=== PATIENT | male | born 1940 | race Caucasian/White ===

== ENCOUNTER 2020-05-16 10:02 | Observation (INO) ==
--- NOTE | 2020-04-05 10:12 | PAT Medication Instructions ---
Medication Instructions Date of Service April 05, 2020 Home Medications alendronate 70 mg PO WK allopurinol 300 mg PO HS atorvastatin 10 mg PO QAM cholecalciferol (vitamin D3) [Vitamin D3] 2,000 unit PO QAM cod liver oil 1 cap PO QAM furosemide 20 mg PO QAM gemfibrozil 600 mg PO QAM metformin 850 mg PO BID multivitamin 1 cap PO QAM pantoprazole 40 mg PO QAM pyridoxine (vitamin B6) [Vitamin B-6] 100 mg PO QAM terazosin 5 mg PO QAM vitamin E 400 unit PO QAM meloxicam 7.5 mg PO BID PRN Continue as directed alendronate 70 mg PO WK (just do not take on morning of surgery) ASK your surgeon for instructions meloxicam 7.5 mg PO BID PRN STOP taking 2 weeks before surgery cod liver oil 1 cap PO QAM vitamin E 400 unit PO QAM STOP taking 48 hours before surgery gemfibrozil 600 mg PO QAM DO NOT take the morning of surgery cholecalciferol (vitamin D3) [Vitamin D3] 2,000 unit PO QAM furosemide 20 mg PO QAM metformin 850 mg PO BID multivitamin 1 cap PO QAM pyridoxine (vitamin B6) [Vitamin B-6] 100 mg PO QAM Take morning of surgery With a small sip of water, OTHERWISE NOTHING TO EAT OR DRINK AFTER MIDNIGHT: atorvastatin 10 mg PO QAM pantoprazole 40 mg PO QAM terazosin 5 mg PO QAM Take evening before surgery allopurinol 300 mg PO HS metformin 850 mg PO BID Other Notes If you have any questions please call us at [phone] or [phone] or [phone] or [phone]
--- NOTE | 2020-04-06 14:25 | Anesthesiology Consultation ---
Date of Service April 06, 2020 Assessment & Plan (1) Encounter for pre-operative examination: Chart Review Chart Review: Acceptable Risk for Surgery (pending preop Covid testing ) - Check BSG AM DOS Per PAT appt 04/06/20, pt resides in [facility]. No recent travel. Wears mask in public. No known Covid positive contacts or Covid related symptoms. Educated patient to follow up with surgeon's office regarding Covid testing. Educated on importance of self quarantining, social distancing and wearing mask in public both for the patient and household contacts. Teaching & Discussion Pre-Anesthesia Teaching/Discussion Notes: Instructed NPO after midnight before surgery,except medications with 15 cc of water. Medication instructions provided according to the PAT guidelines. History Surgery Operation Date: 05/16/20 09:10 Proposed Procedures p Right Total Knee Arthroplasty - Manuel Miner MD Height/Weight Height: 5 ft 10 in Weight: 85.4 kg Allergies Allergy/AdvReac Type Severity Reaction Status Date / Time moxifloxacin Allergy Severe HIVES Verified 04/06/20 12:56 dutasteride AdvReac Severe BREAST Verified 04/06/20 12:56 ENLARGMENT tamsulosin AdvReac Severe BREAST Verified 04/06/20 12:56 ENLARGMENT yellow dye AdvReac Severe BREAST Verified 04/06/20 12:56 ENLARGMENT Medications Home Medications Medication Instructions Recorded Confirmed Last Taken alendronate 70 mg PO WK 08/09/19 04/06/20 Unknown allopurinol 300 mg PO HS 08/09/19 04/06/20 Unknown atorvastatin 10 mg PO QAM 08/09/19 04/06/20 Unknown cholecalciferol (vitamin D3) 2,000 unit PO QAM 08/09/19 04/06/20 Unknown [Vitamin D3] cod liver oil 1 cap PO QAM 08/09/19 04/06/20 Unknown furosemide 20 mg PO QAM 08/09/19 04/06/20 Unknown gemfibrozil 600 mg PO QAM 08/09/19 04/06/20 Unknown metformin 850 mg PO BID 08/09/19 04/06/20 Unknown multivitamin 1 cap PO QAM 08/09/19 04/06/20 Unknown pantoprazole 40 mg PO QAM 08/09/19 04/06/20 Unknown pyridoxine (vitamin B6) [Vitamin 100 mg PO QAM 08/09/19 04/06/20 Unknown B-6] terazosin 5 mg PO QAM 08/09/19 04/06/20 Unknown vitamin E 400 unit PO QAM 08/09/19 04/06/20 Unknown meloxicam 7.5 mg PO BID PRN 04/04/20 04/06/20 Unknown Past Medical History Medical History BPH (benign prostatic hyperplasia) Chronic obstructive pulmonary disease stable Diabetes mellitus, type 2 NIDDM- well controlled and stable Gout No recent flares Hyperlipidemia Nocturnal hypoxia 2L HS Osteoporosis Exercise / Class Metabolic Activity III < 4 Walking/Shop/Light housework (no chest pain or SOB with flat surface ambulation - uses cane ) Past Surgical History Surgical History History of cataract surgery bl History of hip replacement LEFT, RIGHT Hx of colonoscopy 10 yeras ago Hx of fusion of cervical spine X1 LEVEL Hx of hemorrhoidectomy Hx of hernia repair LEFT, RIGHT Past Anesthesia History No Hx of Anesthesia Complications and No Family Hx of Anesthesia Complications History of PONV No Hx of PONV and No Hx of Motion Sickness Social History Smoking Status: Former smoker tobacco type: cigarettes Smoking End Date: quit 2013 Hx Alcohol Use: No Hx Substance Use: No substance use type: does not use Review of Systems KENDALL- chronic and stable- feels secondary to COPD Had own blood for transfusion for PARUL. Patient denies chest pain, shortness of breath, reflux, cough, wheezing, palpitations. No hx of seizures, stroke, RI, apnea/snoring. No hx of blood clots. Physical Exam Vital Signs VITALS BP 110/67 P 73 TEMP 97.9 SP02 95% RESP 16 Constitutional no acute distress ENMT Mouth: no TMJ clicking Thyromental Distance: > or= 3.5 Finger Breadths Mallampati Class: III Full upper dentures Partial lower dentures Neck neck extension not limited Respiratory normal respiratory effort; no respiratory distress Auscultation: lungs clear to auscultation bilaterally and + diminished lung sounds (throughout ); no wheezes Cardiovascular Rate/Rhythm: regular rate and regular rhythm Heart Sounds: no murmur Vessels: no carotid bruit Musculoskeletal Spine: no pain with cervical ROM Neurologic moves all extremities Psychiatric Orientation: alert Testing Laboratory Results 04/06/20 14:48 04/06/20 14:48 PT 10.3 Seconds (9.0-12.0) 04/06/20 14:48 INR 1.0 (0.9-1.1) 04/06/20 14:48 APTT 26.3 Seconds (21.0-31.0) 04/06/20 14:48 Blood Type O Positive 04/06/20 14:48 Antibody Screen NEGATIVE 04/06/20 14:48 Electrocardiogram Date: 08/16/19 Findings: + NSR @ (75) Chest X-Ray Date: 08/16/19 Findings: + NAD Emphysema
[2020-04-06 15:33] LABS: Basophils # (auto) 0.03 K/uL (0-0.2); Basophils % (auto) 0.6 %; Eosinophils # (auto) 0.16 K/uL (0-0.5); Eosinophils % (auto) 3.1 %; Immature Granulocytes # (auto) 0.03 K/uL (0.00-0.02); Immature Granulocytes % (auto) 0.6 %; Lymphocytes # (auto) 1.51 K/uL (1.2-3.4); Lymphocytes % (auto) 29.5 %; Mean Corpuscular Hemoglobin 30.1 pg (25-34); Mean Corpuscular Hgb Conc 32.4 g/dL (32-36); Mean Corpuscular Volume 92.7 fL (80-100); Mean Platelet Volume 9.1 fL (7.4-10.4); Monocytes # (auto) 0.43 K/uL (0.11-0.59); Monocytes % (auto) 8.4 %; Neutrophils # (auto) 2.96 K/uL (1.4-6.5); Neutrophils % (auto) 57.8 %; Platelet Count 334 K/uL (130-400); RDW Coefficient of Variation 14.2 % (11.5-14.5); RDW Standard Deviation 48.3 fL (36.4-46.3); Red Blood Count 3.99 M/uL (4.7-6.1); White Blood Count 5.12 K/uL (4.8-10.8)
[2020-04-06 15:50] LABS: Partial Thromboplastin Ratio 0.9; Partial Thromboplastin Time 26.3 Seconds (21.0-31.0); Prothrombin Time 10.3 Seconds (9.0-12.0)
[2020-04-06 16:03] LABS: BUN Creatinine Ratio 26.1 (10-20); Blood Urea Nitrogen 30 mg/dl (7-18); C Reactive Protein < 0.29 mg/dl (0-0.29); Calcium 9.9 mg/dl (8.5-10.1); Carbon Dioxide 28 mmol/L (21-32); Chloride 100 mmol/L (98-107); Creatinine Clr Calc Pharmacy 54.7 ml/min; Est GFR (African American) 70.3; Est GFR (Non-African American) 60.6; Glucose 93 mg/dl (70-99); Potassium 4.1 mmol/L (3.5-5.1); Sodium 138 mmol/L (136-145)
[2020-04-07 06:49] LABS: Estimated Average Glucose 137 mg/dl; Hemoglobin A1C 6.4 % (4.5-5.6)
--- NOTE | 2020-05-09 20:25 | History and Physical Report ---
DATE OF ADMISSION: 05/16/2020 CHIEF COMPLAINT: Persistent right knee pain, discomfort and instability. HISTORY OF PRESENT ILLNESS: The patient is a 79-year-old gentleman from [place] who presents for surgical treatment of his right knee. We had actually scheduled him for right knee replacement in the past, but it got canceled due to the COVID epidemic. He continues to be bothered by right knee pain and discomfort. He has got global pain, a little bit more lateral. The more he walks, the more it hurts. He has had injections, which gave him very temporary relief. His knee gives out on him intermittently. He is concerned about falling. He has difficulty going up and down steps. He has been using a cane for the past year. Of note, the patient had both of his hips replaced by Dr. Lew, one 5 years ago and the other one 10 years ago. PAST MEDICAL HISTORY: 1. Elevated cholesterol. 2. COPD. 3. Diabetes. 4. Low back pain/sciatica. 5. Mild obesity. 6. BPH. PAST SURGICAL HISTORY: Includes, 1. Bilateral hip replacements done 5 years apart, one 5 years ago, one years ago. 2. Herniorrhaphy. 3. Hemorrhoid surgery. 4. Cervical disk surgery. 5. Mastectomy. 6. Unspecified microsurgery on his back. ALLERGIES: GALDINO. CURRENT MEDICINES: Include, 1. Alendronate once a week. 2. Allopurinol 300 mg a day. 3. Lipitor 10 mg a day. 4. Furosemide 20 mg every other day. 5. Gemfibrozil 600 mg a day. 6. Metformin 850 mg twice a day. 7. Pantoprazole 40 mg a day. 8. Terazosin 5 mg a day. 9. Vitamin B6. 10. Cod liver oil. 11. Vitamin D3. 12. Vitamin E. 13. Multivitamin. SOCIAL HISTORY: A 79-year-old male patient from [place]. He is . Does not smoke. FAMILY HISTORY: Noncontributory. REVIEW OF SYSTEMS: Just significant for diabetes. Denies any current chest pain or shortness of breath. No history of DVT or PE. No known bleeding problems. PHYSICAL EXAMINATION GENERAL: Shows a pleasant elderly male. Looks to be in pretty good health. HEENT: Benign. NECK: Supple, no lymphadenopathy. LUNGS: Clear to auscultation. HEART: Has a regular rate and rhythm. ABDOMEN: Soft, nontender, nondistended. EXTREMITIES: Grossly neurovascularly intact except as follows: Examination of the right knee reveals the patient walks with the use of a cane. He has got valgus alignment to his knee, which is increased with weightbearing. Small knee effusion. Range of motion about 10 degrees short of full extension to 120 degrees of flexion. There is no instability. No pain with hip motion. He is neurovascularly intact. X-RAYS: X-rays of the right knee are reviewed. It shows advanced right knee lateral compartment DJD. He has got complete loss of his lateral joint space. He has got significant patellofemoral disease as well. 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 He has failed conservative treatment and would like to have his right knee replaced. We did have him scheduled in the past but canceled due to the COVID epidemic. He now would like to proceed. PLAN: We will proceed with right knee replacement. The risks and benefits of this procedure were explained to the patient and include but not limited to DVT, PE, , infection, neurological injury, vascular injury, bleeding problem, pain, limited range of motion, stiffness, failure to relieve symptoms, incomplete relief of symptoms, need for further surgery in the future, fracture, leg length inequality, nerve palsy, etc. The patient understands and desires to proceed. We did talk to him about holding his metformin in the morning of surgery. He is planning to be discharged to home using [facility] home health program.
[~2020-05-16 10:02] MED LIST: ACETAMINOPHEN 500 MG TAB PO SCH; BUPIVACAINE 0.5 % 5 MG/1 ML PF 10ML VIAL ONE; BUPIVACAINE LIPOSOME/PF 266 MG, BUPIVACAINE/EPINEPHRINE 50 ML, SODIUM CHLORIDE 0.9% 30 ... INFIL SCH; BUPIVACAINE/EPINEPHRINE 0.25% 1:200,000 30 ML VIAL ONE; DEXAMETHASONE SOD INJ 4 MG/ML VIAL ONE; FAMOTIDINE 20 MG TAB PO SCH; GABAPENTIN 300 MG CAP PO SCH; LR 500ML BOLUS, THEN 15ML/HR IV SCH; LR 60ML/HR IV SCH; METOCLOPRAMIDE HCL 10 MG TABLET PO SCH; MIDAZOLAM HCL 1 MG/ML 2ML VIAL ONE; TRANEXAMIC ACID 1,000 MG **IV Intra-op IV SCH; ceFAZolin 2000MG 2,000 MG/15 ML SYR IV SCH; fentaNYL citrate 100 MCG/2 ML VIAL ONE
--- NOTE | 2020-05-16 10:46 | History & Physical Bridge Note ---
Date of Service May 16, 2020 History & Physical Bridge Note I have examined the patient, reviewed the History & Physical and in the interval since the performance of the History & Physical I have noted the following changes of clinical significance: no changes noted
[2020-05-16] MEDS ORDERED: fentaNYL citrate 100 MCG/2 ML VIAL IV PRN (12:29)
[2020-05-16] MEDS ORDERED: ONDANSETRON INJ 2 MG/ML 2 ML VIAL IV PRN ×2 (12:29→17:30)
[2020-05-16] MEDS ORDERED: ePHEDrine sulfate 50 MG/ML AMP IV PRN (12:29)
[2020-05-16] MEDS ORDERED: ATROPINE SULFATE 0.1 MG/ML 10ML SYR IV PRN (12:29)
[2020-05-16] MEDS ORDERED: BUPIVACAINE 0.25% 30 ML VIAL ONE (12:50)
[2020-05-16] MEDS ORDERED: EPINEPHrine INJ 1 MG/ML AMP ONE (12:50)
[2020-05-16] MEDS ORDERED: SODIUM CHLORIDE 0.9% PF 50 ML VIAL ONE (12:50)
[2020-05-16] MEDS ORDERED: BUPIVACAINE LIPOSOME 1.3% 266 MG/20 ML VIAL ONE (12:51)
[2020-05-16] MEDS ORDERED: BACITRACIN INJ 50,000 UNIT VIAL ONE (12:51)
[2020-05-16] MEDS ORDERED: PROPOFOL IV EMULSION 10 MG/ML 20 ML VIAL IV ONE (13:12)
--- NOTE | 2020-05-16 14:52 | Post Operative Brief Note ---
PG Immediate Post Op with CF Date of Surgery May 16, 2020 Pre & Post Diagnosis Operation Date: 05/16/20 12:30 Pre-Op Diagnosis: Right Knee Degenerative Joint Disease; Knee Pain Post-Op Diagnosis: Right Knee Degenerative Joint Disease; Knee Pain I identified the patient and participated in the time-out.: Yes Procedure Operation Date: 05/16/20 12:30 Actual Procedures p Right Total Knee Arthroplasty(Right) - Manuel Miner MD Surgeon Manuel Miner MD Wood Drill Operator JACLYN Bryant Estimated Blood Loss 50 Findings Consistent with Post-Op Diagnosis Fluids 700 cc Specimens Specimen Description: Permanent specimen: A. Right knee bone and tissue Drains Garnett Catheter (16 fr garnett catheter inserted by JACLYN Membreno, clear yellow urine for return) Anesthesia Type Spinal MAC Complications none Disposition Accompanied Patient To Recovery: No Disposition: Recovery Room
--- NOTE | 2020-05-16 15:48 | XRay Report ---
RIGHT KNEE 2 VIEWS History: Right total knee arthroplasty. Degenerative arthritis. Postop. FINDINGS: The patient is status post a right total knee arthroplasty. The hardware is intact. No frac ture or dislocation. Skin veto are in place. IMPRESSION: Right total knee arthroplasty. No evidence for hardware complication. ACT 112: Negative or not required by law. Electronically signed by: Bolivar Galeano M.D. 05/16/2020 3:47 PM
--- NOTE | 2020-05-16 16:26 | Anesthesiology Progress Note ---
Date of Service May 16, 2020 Anesthesia Post Procedure Vital Signs Vital Signs: Temp Pulse Pulse Resp BP Pulse Ox 05/16/20 16:00 36.4 C L 74 16 100/57 L 94 05/16/20 15:45 67 16 101/57 L 94 05/16/20 15:35 64 16 106/60 94 05/16/20 15:25 61 16 96/57 L 94 05/16/20 15:15 68 16 104/52 L 94 05/16/20 15:05 69 16 96/56 L 97 05/16/20 14:57 36.0 C L 71 16 104/54 L 97 05/16/20 11:28 63 18 103/65 97 05/16/20 10:59 36.5 C 95 H 20 123/71 98 Transfer of Care Handoff Completed per policy Notes Mental Status: alert / awake / arousable Patient Amnestic to Procedure: Yes Nausea / Vomiting: adequately controlled Pain: adequately controlled Airway Patency, RR, SpO2: stable & adequate BP & HR: stable & adequate Hydration State: stable & adequate Neuraxial Anesthesia: was administered and sensory block is resolving Anesthetic Complications: no major complications apparent
--- NOTE | 2020-05-16 16:56 | Operative Report ---
Post Operative Report Pre & Post Diagnosis Operation Date: 05/16/20 12:30 Pre-Op Diagnosis: Right Knee Degenerative Joint Disease; Knee Pain Post-Op Diagnosis: Right Knee Degenerative Joint Disease; Knee Pain I identified the patient and participated in the time-out.: Yes Procedure Operation Date: 05/16/20 12:30 Actual Procedures p Right Total Knee Arthroplasty(Right) - Manuel Miner MD Surgeon Manuel Miner MD Low Heel Builder Annette, PAC Estimated Blood Loss 50 Findings Consistent with Post-Op Diagnosis Operative findings revealed advanced right knee DJD with extensive grade 4 [id number] disease and eburnation of the lateral compartment as well as the patellofemoral compartment. He had a valgus deformity to his knee. He had generalized ligament laxity moderate-sized joint effusion. Fluids 700 cc. Specimens Right knee sent for pathology. Drains None. Anesthesia Type Spinal MAC Complications none Disposition Accompanied Patient To Recovery: No Disposition: Recovery Room Indications Patient is a 79-year-old gentleman is had a long history of right knee pain discomfort describes gotten worse over the years. Is been unresponsive conservative care and he also had developing instability to his knee with concerns for falls. He failed all conservative measures. He has been scheduled for knee surgery several times and canceled for various regions including the Covid epidemic. He now presents for surgical treatment. As Description of Procedure Operative implants consisted of: 1 Biomet Vanguard size 65 right posterior stabilized femoral component. 2. Biomet size 75 tibial tray. 3. Biomet size 16 mm posterior stabilized polyethylene plus insert. 4. 31 x 8 all polypatella. The patient was taken to the operating identified and placed on the operating table supine position but all contact areas were properly padded. IV antibiotics 5 by anesthesia team. Spinal anesthetic and abductor canal block had provided in the holding area. A Yip catheter was placed in sterile fashion. Right thigh turn was then placed in the right lower extremities and prepped and draped in usual sterile fashion. The right leg was elevated exsanguinated with use of an Esmarch and turns placed at 300 mmHg. An anterior approach to the right knee was then performed to longitudinal incision centered over the patella. Sharp dissection was carried through subcutaneous tissue down the extensor mechanism. A medial parapatellar arthrotomy incision was made. Subperiosteal dissection was carried out medially. The fat pad was resected from each patella tendon. Lateral patellofemoral ligament was released. The patella was subluxated laterally and the knee was flexed. The osteophytes were taken off distal femur. The ACL PCL were then released in the distal femur and the tibia subluxate anteriorly. The external tibial alignment jig was then placed in the interface the tibia and adjusted 12 mm medially. Proximal tibial cut was made remove about 2 to 3 mm of bone from the medial side. Tibia sized to a size 75. We did try to maximize coverage as he was fairly osteopenic particularly medial. Attention drawn the femur. The distal femur then with a sharp drop with intramedullary canal was suction. A right 5 degree valgus cutting guide was placed. The distal femoral cutting block was pinned in place. Distal femoral cut was made to take an additional 3 mm of bone off distal femur. The knee was brought out into extension. I equalize the extension gap by doing a pie crusting of the IT band. Great care was taken to protect the peroneal nerve. I then flexed the knee. The femur was then sized to a size 65. The AP cutting block was pinned parallel to the epicondylar axis which was 4 degrees of external rotation. The anterior cut, anterior chamfer, posterior cut, posterior chamfer cuts were made. Box cutting guide was placed and adjusted slightly laterally. The box cut was made. The knee was flexed. The remnants of the medial lateral menisci were excised. The osteophytes were taken off the posterior aspect the femur. A trial femoral component was placed. The tibial tray was pinned in maximum external rotation and the drill and stem punch were used to create defect in proximal to for the tibial tray. I did have to release the popliteus in order to equalize the flexion gap. The knee was then trialed. His knee was fairly lax and therefore wheezes 16mm insert. I did use the posterior stabilized plus insert due to his laxity on the medial side. Attention drawn the patella. Patella was cleaned of all soft tissue. Patella thickness measured 20 mm in thickness was cut down to 13 it was sized to a size 31 patella. The lug holes were drilled for the 31 patella. The lateral osteophyte is moved. Patella button was placed. Knee was taken through range of motion patella tracked nicely with no thumbs test. Attention drawn to place the permanent components. All trial components were removed. A bone plug was placed in the distal femur limit blood loss. A double batch Palacos G cement was mixed. A Biomet Vanguard size 65 right posterior stabilized femoral component, size 75 tibial tray, and 16 mm posterior stabilized plus insert, and a 31 x 8 all polypatella were then cemented in place. The knee was brought out in full extension total cement hardened. Final cement check was then performed. The pericapsular tissues were injected with total 100 cc of combination of 20 of Exparel, 30 cc normal saline, 50 cc of quarter percent Marcaine with epinephrine. Patient did receive 1 g tranexamic acid per the turn was then let down for final tourniquet time of 62 minutes. Hemostasis assured use electrocautery. The extensor mechanism closed with combination 1 PDS suture #0 Vicryl suture in [id number] fashion. The extensor mechanism checked found to be intact. The subcutaneous tissue then closed with 2 Dexon suture in a buried interrupted fashion skin was closed skin veto. Leg was then cleaned dried and sterile dressed with Xeroform, 4 x 4's, sterile cast padding, Beltran bandage were applied. Patient then transferred to the recovery room in stable condition. Patient tolerated procedure well and there were no complications. Inocencio Bryant, my physician sales operations assistant, was present for the entire procedure. His assistance was essential and required for appropriate patient positioning, prepping and draping, surgical exposure, performing the technical details of the operation, placement the implants, closure of the wound, and placement of the sterile bandage. I attest to the content of the Intraoperative Record and any orders documented therein. Any exceptions are noted below.
[2020-05-16] MEDS ORDERED: NALOXONE HCL 0.4 MG/1 ML VIAL/CARP IV PRN (17:30)
[2020-05-16] MEDS ORDERED: HYDROmorphone INJ 0.5 MG/0.5 ML SYR IV PRN (17:30)
[2020-05-16] MEDS ORDERED: MAGNESIUM HYDROXIDE SUSP 30 ML UDC PO PRN (17:30)
[2020-05-16] MEDS ORDERED: GLUCOSE 40% GEL 15 GM TUBE PO PRN (17:30)
[2020-05-16] MEDS ORDERED: GLUCAGON FOR INJ 1 MG VIAL SQ PRN (17:30)
[2020-05-16] MEDS ORDERED: bisacodyL 10 MG SUPP PR PRN (17:30)
[2020-05-16] MEDS ORDERED: ALUMINUM/MAGNESIUM SUSP 30 ML UDC PO PRN (17:30)
[2020-05-16] MEDS ORDERED: CARBOHYDRATES FOR HYPOGLYCEMIA PO PRN (17:30)
[2020-05-16] MEDS ORDERED: GLUCOSE 10 TABS/TUBE PO PRN (17:30)
[2020-05-16] MEDS ORDERED: METOCLOPRAMIDE HCL INJ 5 MG/ML 2 ML VIAL IV PRN (17:30)
[2020-05-16] MEDS ORDERED: DEXTROSE 50% 50 ML SYRINGE IV PRN (17:30)
[2020-05-16] MEDS ORDERED: TAMSULOSIN HCL 0.4 MG CAP PO PRN (17:30)
--- NOTE | 2020-05-16 18:24 | Progress Notes ---
DATE: 05/16/2020 SUBJECTIVE: A 79-year-old gentleman postop from a right knee replacement. He is doing pretty well. Still has not gotten the sensation or function back in his legs yet. No chest pain or shortness of breath. Not feeling dizzy or lightheaded. OBJECTIVE: VITAL SIGNS: Temperature 36.4. Vital signs stable. GENERAL: Shows a pleasant elderly male. He is sitting up in bed, looks quite comfortable. LUNGS: Clear to auscultation. HEART: Has a regular rate and rhythm. ABDOMEN: Soft, nontender, nondistended. EXTREMITIES: Grossly neurovascularly intact except as follows: Examination of the right leg reveals the leg to be well aligned. His dressing is clean, dry and intact. His toes are pink with brisk refill. He has no significant sensory or motor function in either leg yet. X-RAYS: X-rays of the right knee from recovery room are reviewed. It shows right cemented posterior stabilized total knee arthroplasty. Components looked to be in good position. No signs of problems. ASSESSMENT: A 79-year-old gentleman postoperative from a right knee replacement, doing pretty well. The spinal is still in effect. PLAN: 1. DVT prophylaxis including thigh-high TEDs, SCDs, and aspirin twice a day. 2. PT/OT. He can weightbear as tolerated. Right total knee protocol. 3. Pain control, doing pretty well with current pain regimen. Really not having any pain yet. We will have to adjust his meds as his spinal wears off. 4. IV antibiotics x24 hours. 5. Disposition: Plan to discharge to home with some home health once adequately recovered and medically stable.
[2020-05-16] MEDS ORDERED: PHARMACY GLYCEMIC MGMT CONSULT PRN (18:48)
[2020-05-16] MEDS: SODIUM CHLORIDE 0.9% 1000ML 1,000 ML IV SCH (19:53)
[2020-05-16] MEDS: ACETAMINOPHEN 500 MG TAB PO SCH (19:53)
[2020-05-16] MEDS: ASCORBIC ACID 500 MG TAB PO SCH (19:57)
[2020-05-16] MEDS: FERROUS GLUCONATE 324 MG TAB PO SCH (19:57)
[2020-05-16] MEDS: KETOROLAC TROMETHAMINE 15 MG/ML VIAL IV SCH (19:57)
[2020-05-16] MEDS ORDERED: TRANEXAMIC ACID / 0.7% NACL 1,000 MG/100 ML BAG IV SCH (20:55)
[2020-05-16] MEDS: ASPIRIN 81 MG ECTAB PO SCH (21:36)
[2020-05-16] MEDS: ceFAZolin 2000MG 2,000 MG/15 ML SYR IV SCH (21:36)
[2020-05-16] MEDS: allopurinoL 300 MG TAB PO SCH (21:37)
[2020-05-16] MEDS: DOCUSATE SODIUM 100 MG CAP PO SCH (21:37)
[2020-05-16] MEDS: SENNA 8.6 MG TAB PO SCH (21:38)
[2020-05-16] MEDS: INSULIN ASPART 100 UNITS/ML 3 ML PEN SC SCH (21:41)
[2020-05-16] MEDS: traMADol HCL 50 MG TABLET PO PRN (21:45)
[2020-05-17] MEDS ORDERED: INSULIN ASPART 100 UNITS/ML 3 ML PEN SC SCH
[2020-05-17] MEDS: KETOROLAC TROMETHAMINE 15 MG/ML VIAL IV SCH ×4 (02:25→17:54)
[2020-05-17] MEDS: ACETAMINOPHEN 500 MG TAB PO SCH ×3 (05:44→22:13)
[2020-05-17] MEDS: ceFAZolin 2000MG 2,000 MG/15 ML SYR IV SCH (05:44)
[2020-05-17] MEDS: SODIUM CHLORIDE 0.9% 1000ML 1,000 ML IV SCH (05:50)
[2020-05-17 08:07] LABS: Hematocrit (blood only) 32.2 % (42-52); Hemoglobin 10.5 g/dL (14.0-18.0); Mean Corpuscular Hemoglobin 30.4 pg (25-34); Mean Corpuscular Hgb Conc 32.6 g/dL (32-36); Mean Corpuscular Volume 93.3 fL (80-100); Mean Platelet Volume 8.9 fL (7.4-10.4); Platelet Count 296 K/uL (130-400); RDW Coefficient of Variation 14.4 % (11.5-14.5); RDW Standard Deviation 48.2 fL (36.4-46.3); Red Blood Count 3.45 M/uL (4.7-6.1); White Blood Count 9.01 K/uL (4.8-10.8)
[2020-05-17 08:40] LABS: BUN Creatinine Ratio 21.5 (10-20); Calcium 8.6 mg/dl (8.5-10.1); Creatinine Clr Calc Pharmacy 62.9 ml/min; Est GFR (African American) 83.2; Est GFR (Non-African American) 71.8
[2020-05-17] MEDS ORDERED: MULTIVITAMIN TAB PO SCH (09:00)
[2020-05-17] MEDS ORDERED: NON-FORMULARY MEDICATION (Cod Liver Oil 1 CAP) PO SCH (09:00)
[2020-05-17] MEDS: INSULIN ASPART 100 UNITS/ML 3 ML PEN SC SCH ×4 (09:04→21:25)
[2020-05-17] MEDS: MULTIVITAMIN TAB PO SCH (09:07)
[2020-05-17] MEDS: TOCOPHERYL, DL-ALPHA 400 UNITS CAP PO SCH (09:07)
[2020-05-17] MEDS: ATORVASTATIN 10 MG TAB PO SCH (09:07)
[2020-05-17] MEDS: PYRIDOXINE HCL 50 MG TAB PO SCH (09:08)
[2020-05-17] MEDS: FERROUS GLUCONATE 324 MG TAB PO SCH ×2 (09:08→17:54)
[2020-05-17] MEDS: ASPIRIN 81 MG ECTAB PO SCH ×2 (09:08→21:20)
[2020-05-17] MEDS: gemfibroziL 600 MG TAB PO SCH (09:08)
[2020-05-17] MEDS: ASCORBIC ACID 500 MG TAB PO SCH ×2 (09:08→17:53)
[2020-05-17] MEDS: PANTOprazole 40 MG TAB PO SCH (09:08)
[2020-05-17] MEDS: DOCUSATE SODIUM 100 MG CAP PO SCH ×2 (09:08→21:19)
[2020-05-17] MEDS: CHOLECALCIFEROL 1,000 UNITS 25 MCG TAB PO SCH (09:09)
[2020-05-17] MEDS: TERAZOSIN HCL 5 MG CAP PO SCH (10:26)
[2020-05-17] MEDS: FUROSEMIDE 20 MG TAB PO SCH (10:26)
--- NOTE | 2020-05-17 13:00 | Pharmacy Report ---
Pharmacy Glycemic Sign Off Nt - Date of Service May 17, 2020 - Assessment & Plan ASSESSMENT: * Pharmacy was consulted by Dr Miner on 05/16 for glycemic control and to write orders per [facility] inpatient glycemic control protocol. * Major changes made by pharmacy to antidiabetic regimen include: * added SSI with CF only * Patient received only 1 unit of insulin yesterday for adequate glycemic control * BSGs ranging 85-152 mg/dl * Regimen has only required minor adjustments over the past 48hrs to achieve this level of control * Do not anticipate further changes in patient status that would quickly deteriorate glycemic control (i.e. patient to be NPO for upcoming procedure, steroids tapering, starting tube feedings, etc). * Please see recommendations for outpatient antidiabetic regimen below. PLAN FOR INPATIENT GLYCEMIC CONTROL: No changes needed to current regimen. Okay to resume home metformin with dinner tonight * Continue NovoLog per scale ACHS/Q6hrs while NPO * Goal range = 110-140 mg/dl * CF = 30 mg/dl/unit * CR = 1 unit for ever -- g CHO consumed * Pharmacy is signing off of glycemic consult and will no longer be making adjustments to inpatient regimen. Please feel free to re-consult if needed. Thank you. DISCHARGE RECOMMENDATIONS: * A1c 6.4 % on 04/06/20 - recommend continuation of home metformin on discharge
[2020-05-17] MEDS: metFORMIN HCL 850 MG TAB PO SCH (17:54)
[2020-05-17] MEDS: traMADol HCL 50 MG TABLET PO PRN (17:56)
--- NOTE | 2020-05-17 20:55 | Progress Notes ---
DATE: 05/17/2020 SUBJECTIVE: A 79-year-old gentleman postoperative day 1 from right knee replacement. He is doing quite well. Therapy went well. His pain is controlled. Denies any chest pain or shortness of breath. Not feeling dizzy or lightheaded. OBJECTIVE: VITAL SIGNS: Temperature 36.5. Vital signs stable. GENERAL: Shows a pleasant elderly male. He is sitting up in bed, looks comfortable this afternoon. He is talking to his . LUNGS: Clear to auscultation. HEART: Has a regular rate and rhythm. ABDOMEN: Soft, nontender, nondistended. EXTREMITIES: Grossly neurovascularly intact except as follows: Examination of the right leg reveals the leg to be well aligned. Dressing is clean, dry, and intact. He can dorsiflex and plantarflex his foot appropriately. He can do a pretty good straight leg raise. LABORATORY DATA: Hemoglobin 10.5. Hematocrit 32.2. Electrolytes are stable. ASSESSMENT: A 79-year-old gentleman postoperative day 1 from a right knee replacement, doing pretty well. His pain is controlled. He is neurologically intact. He has got multiple other medical comorbidities, which seem to be doing well. PLAN: 1. DVT prophylaxis including thigh-high TEDs, SCDs, and aspirin twice a day. 2. PT/OT. Weight bear as tolerated. Right total knee protocol. 3. Pain control, doing okay with current pain regimen. 4. Disposition: Plan is to discharge to home with some home health once adequately recovered and medically stable.
[2020-05-17] MEDS: SENNA 8.6 MG TAB PO SCH (21:19)
[2020-05-17] MEDS: allopurinoL 300 MG TAB PO SCH (21:20)
[2020-05-18] MEDS: traMADol HCL 50 MG TABLET PO PRN ×2 (00:05→07:54)
[2020-05-18] MEDS: KETOROLAC TROMETHAMINE 15 MG/ML VIAL IV SCH ×2 (02:57→07:54)
[2020-05-18] MEDS: ACETAMINOPHEN 500 MG TAB PO SCH (05:43)
[2020-05-18] MEDS: FUROSEMIDE 20 MG TAB PO SCH (07:52)
[2020-05-18] MEDS: DOCUSATE SODIUM 100 MG CAP PO SCH (07:52)
[2020-05-18] MEDS: MULTIVITAMIN TAB PO SCH (07:53)
[2020-05-18] MEDS: PANTOprazole 40 MG TAB PO SCH (07:53)
[2020-05-18] MEDS: TOCOPHERYL, DL-ALPHA 400 UNITS CAP PO SCH (07:53)
[2020-05-18] MEDS: PYRIDOXINE HCL 50 MG TAB PO SCH (07:53)
[2020-05-18] MEDS: TERAZOSIN HCL 5 MG CAP PO SCH (07:54)
[2020-05-18] MEDS: metFORMIN HCL 850 MG TAB PO SCH (07:54)
[2020-05-18] MEDS: gemfibroziL 600 MG TAB PO SCH (07:54)
[2020-05-18] MEDS: ATORVASTATIN 10 MG TAB PO SCH (07:54)
[2020-05-18] MEDS: FERROUS GLUCONATE 324 MG TAB PO SCH (07:54)
[2020-05-18] MEDS: CHOLECALCIFEROL 1,000 UNITS 25 MCG TAB PO SCH (07:54)
[2020-05-18] MEDS: ASPIRIN 81 MG ECTAB PO SCH (07:54)
[2020-05-18] MEDS: ASCORBIC ACID 500 MG TAB PO SCH (07:54)
[2020-05-18] MEDS: INSULIN ASPART 100 UNITS/ML 3 ML PEN SC SCH (08:23)
--- NOTE | 2020-05-18 19:14 | Progress Notes ---
DATE: 05/18/2020 SUBJECTIVE: A 79-year-old gentleman postop day 2 from a right knee replacement. He is doing well. Pain is controlled. Therapy went pretty well. No chest pain or shortness of breath. He feels ready to go home. OBJECTIVE: VITAL SIGNS: Temperature 36.8. Vital signs stable. GENERAL: Shows a pleasant elderly male. He is sitting up in his bedside, talking to the therapist when I talked to him today. EXTREMITIES: Examination of the right leg reveals the dressing to be clean, dry and intact. Just a trace bit of bloody drainage. He is bending it well. He can do a straight leg raise. He can dorsiflex and plantarflex his foot appropriately. ASSESSMENT: A 79-year-old gentleman postoperative day 2 from right knee replacement, doing well. His pain is controlled. Therapy went well. PLAN: 1. DVT prophylaxis including thigh-high TEDs, SCDs, and aspirin twice a day. 2. PT/OT. Weight bear as tolerated. Right total knee protocol. 3. Pain control, doing well with current pain regimen. 4. Disposition: Plan to discharge to home with some home health after therapy is completed today.
--- NOTE | 2020-05-22 19:16 | Discharge Summary ---
Date of Service May 22, 2020 Admission HPI Per Admitting Provider Documented in the H & P Admission Exam (Per Admitting) Constitutional Documented in the H & P Discharge Data Consultations 05/16/20 17:30 Consult Case Management - Discharge Planning Routine Procedures Performed Operation Date: 05/16/20 12:30 Actual Procedures p Right Total Knee Arthroplasty(Right) - Manuel Miner MD Hospital Course (1) Status post total right knee replacement: This patient is a 79 year old male admitted on 05/16/20 and underwent total knee arthroplasty. He tolerated the procedure well and there were no complications. Transferred to the PACU post op and later to the orthopedic floor for further care. He was given ancef for antibiotic prophylaxis. He was also given ELAYNE stockings, SCDs, and aspirin for DVT prophylaxis. Hemoglobin, hematocrit, and vital signs were monitored during his hospital stay and remained stable. Did not require any blood transfusions. There were no complications during his hospital stay. By post op day #2 the patient was tolerating a diabetic diet, pain was reasonably controlled with oral pain medicine, and he was participating in physical therapy. On post op day #2 the patient was discharged home and set up with home health care. He was given printed discharge instructions including prescriptions for extra strength tylenol, aspirin, and tramadol. Continue physical therapy, weight bearing as tolerated. Continue ELAYNE stockings. Follow up approximately 2 weeks post op or sooner if there are problems or concerns. Coding Level of Care Code None Diagnoses Status post total right knee replacement Z96.651
== END 2020-05-18 11:09 | disposition home health service (06) ==
LOC: ASU 10:02 → 3N 10:02